=== PATIENT | female | born 1990 | race Caucasian/White ===

== ENCOUNTER 2020-05-01 15:18 | Day surgery (SDC) | payer SELFPAY ==
[2020-05-01] MEDS ORDERED: Sodium Chloride 0.9% 2.5 ML Syringe FLUSH PRN (16:16)
[2020-05-01] MEDS ORDERED: Sodium Chloride 0.9% 10 ML Syringe FLUSH PRN (16:16)
[2020-05-01] MEDS ORDERED: Ondansetron 4 MG/2 ML SDV IVPUSH ONE (16:38)
[2020-05-01] MEDS ORDERED: Sodium Chloride 0.9% 1,000 ML IV ONE (16:38)
[2020-05-01] MEDS ORDERED: Morphine 2 MG/ML SYRINGE IVPUSH ONE (16:38)
[2020-05-01 17:04] LABS: BLOOD UREA NITROGEN,BUN 7 mg/dL (7.0-18.0); CARBON DIOXIDE,CO2 26.2 mmol/L (21.0-32.0); CHLORIDE,CL 105 mmol/L (98-107); GLUCOSE RANDOM 88 mg/dL (74-106); LIPASE 177 U/L (73-393); POTASSIUM,K 3.5 mmol/L (3.5-5.1); SODIUM,NA 140 mmol/L (136-145)
[2020-05-01] MEDS ORDERED: Iopamidol 755 MG/ML 500 ML Multipack Bottle IVPUSH ONE (17:39)
--- NOTE | 2020-05-01 18:01 | EDM.PDOC ---
ED HPI GENERAL MEDICAL PROBLEM - General Chief Complaint: Abdominal Pain Stated Complaint: APENDIX PAIN Time Seen by Provider: 05/01/20 15:24 Source of Information: Reports: Patient History Limitations: Reports: No Limitations - History of Present Illness INITIAL COMMENTS - FREE TEXT/NARRATIVE: HISTORY AND PHYSICAL: History of present illness: Patient is a 29-year-old female who presents to the ED today with concern of right lower abdominal pain that has been ongoing for the past 2 days and worsening this morning. Patient states she had a vague right lower abdominal pain over the course of the past 2 days has increased. Patient states that today she has had more nausea and has had one episode of vomiting before coming to the emergency room and states that she does feel like she could vomit again. Patient states that she last ate lunch at about 1130 but vomited shortly after this and has not been able to eat or drink since. Patient denies any health history or any abdominal surgeries. Patient denies fever, chills, chest pain, shortness of breath, or cough. Denies headache, neck stiff ness, change in vision, syncope, or near syncope. Denies diarrhea, constipation, or dysuria. Has not noted any blood in urine or stool. Review of systems: As per history of present illness and below otherwise all systems reviewed and negative. Past medical history: As per history of present illness and as reviewed below otherwise noncontributory. Surgical history: As per history of present illness and as reviewed below otherwise noncontributory. Social history: See social history for further information Family history: As per history of present illness and as reviewed below otherwise noncontributory. Physical exam: General: Patient is alert, oriented, and in no acute distress. Patient sitting comfortably on exam table. HEENT: Atraumatic, normocephalic, pupils equal and reactive bilaterally, negative for conjunctival pallor or scleral icterus, mucous membranes moist, TMs normal bilaterally, throat clear, neck supple, nontender, trachea midline. No drooling or trismus noted. No meningeal signs. No hot potato voice noted. Lungs: Clear to auscultation, breath sounds equal bilaterally, chest nontender. Heart: S1S2, regular rate and rhythm without overt murmur Abdomen: Soft, nondistended, moderate RLQ tenderness. Negative rebound. Negative for masses or hepatosplenomegaly. Negative for costovertebral tenderness. Pelvis: Stable nontender. Genitourinary: Deferred. Rectal: Deferred. Skin: Intact, warm, dry. No lesions or rashes noted. Extremities: Atraumatic, negative for cords or calf pain. Neurovascular unremarkable. Neuro: Awake, alert, oriented. Cranial nerves II through XII unremarkable. Cerebellum unremarkable. Motor and sensory unremarkable throughout. Exam nonfocal. Notes: Dr. Benedict, general surgery, consulted on patient and has come in to personally see and evaluate the patient. Will transfer to the OR to Dr. Benedict Voices understanding and is agreeable to plan of care. Denies any further questions or concerns at this time. Diagnostics: CBC, CMP, Serum hcg, Lipase, Abd/pelvic CT w cont, lactate Therapeutics: NS, Zofran, Morphine, Unasyn Impression: Acute appendicitis Plan: Transfer to the OR to Dr. Benedict, general surgery Definitive disposition and diagnosis as appropriate pending reevaluation and review of above. Right Lower Abdomen Pain Score (Numeric/FACES): 8 - Related Data Allergies Allergy/AdvReac Type Severity Reaction Status Date / Time No Known Allergies Allergy Verified 05/01/20 16:08 Home Meds: Home Meds . [No Known Home Meds] 05/01/20 [History] Past Medical History - Infectious Disease History Infectious Disease History: Reports: Chicken Pox Other Infectious Disease History: Chicken pox as a child Social & Family History - Tobacco Use Tobacco Use Status *Q: Current Every Day Tobacco User Years of Tobacco use: 10 Packs/Tins Daily: 1 - Caffeine Use Caffeine Use: Reports: Coffee, Energy Drinks, Soda - Recreational Drug Use Recreational Drug Use: No ED ROS GENERAL - Review of Systems Review Of Systems: Comprehensive ROS is negative, except as noted in HPI. ED EXAM, GENERAL - Physical Exam Exam: See Below (see dictation) Course - Vital Signs Last Recorded V/S: Last Vital Signs Temp 97.8 F 05/01/20 20:00 Pulse 80 05/01/20 20:00 Resp 16 05/01/20 20:00 BP 129/78 05/01/20 20:00 Pulse Ox 96 05/01/20 20:00 - Orders/Labs/Meds Orders: Active Orders 24 hr Category Date Time Status Antiembolic Devices [RC] PER UNIT ROUTINE Care 05/01/20 19:42 Active Insert Urinary Catheter [OM.PC] Timed Care 05/01/20 19:42 Ordered Notify Provider Consults [RC] ASDIRECTED Care 05/01/20 18:19 Active Oxygen Therapy [RC] ASDIRECTED Care 05/01/20 19:42 Active RT Incentive Spirometry [RC] Q1HWA Care 05/01/20 19:42 Active Skin Preparation [RC] .PREOP Care 05/01/20 19:42 Active Urinary Catheter Assessment [RC] ASDIRECTED Care 05/01/20 19:42 Active Urinary Catheter Assessment [RC] ASDIRECTED Care 05/01/20 19:42 Active Urinary Catheter Assessment [RC] ASDIRECTED Care 05/01/20 19:42 Active Vital Signs [RC] PER UNIT ROUTINE Care 05/01/20 19:42 Active Consult to Physician [CONS] Stat Cons 05/01/20 18:19 Active Nothing Per Oral Diet [DIET] Diet 05/01/20 Dinner Active CULTURE BLOOD [BC] Stat Lab 05/01/20 16:40 Received CULTURE BLOOD [BC] Stat Lab 05/01/20 16:44 Received CULTURE URINE [RM] Stat Lab 05/01/20 19:47 Received Lactated Ringers [Ringers, Lactated] 1,000 ml Med 05/01/20 19:45 Active IV ASDIRECTED Sodium Chloride 0.9% [Saline Flush] Med 05/01/20 16:16 Active 10 ml FLUSH ASDIRECTED PRN Sodium Chloride 0.9% [Saline Flush] Med 05/01/20 16:16 Active 2.5 ml FLUSH ASDIRECTED PRN Antiembolic Hose [OM.PC] Routine Oth 05/01/20 19:42 Ordered Blood Culture x2 Reflex Set [OM.PC] Stat Oth 05/01/20 16:38 Ordered Saline Lock Insert [OM.PC] Stat Oth 05/01/20 16:16 Ordered Resuscitation Status Routine Resus Stat 05/01/20 19:42 Ordered Medication Orders Lactated Ringer's (Ringers, Lactated) 1,000 mls @ 125 mls/hr IV ASDIRECTED TIMOTHY Sodium Chloride (Saline Flush) 10 ml FLUSH ASDIRECTED PRN PRN Reason: Keep Vein Open Last Admin: 05/01/20 16:49 Dose: 10 ml Documented by: MURDNIC Sodium Chloride (Saline Flush) 2.5 ml FLUSH ASDIRECTED PRN PRN Reason: Keep Vein Open Last Admin: 05/01/20 16:49 Dose: 2.5 ml Documented by: BELL Labs: Laboratory Tests 05/01/20 05/01/20 05/01/20 Range/Units 16:25 16:25 16:25 WBC 22.32 H (4.0-11.0) K/uL RBC 4.63 (4.30-5.90) M/uL Hgb 14.4 (12.0-16.0) g/dL Hct 42.8 (36.0-46.0) % MCV 92.4 (80.0-98.0) fL MCH 31.1 (27.0-32.0) pg MCHC 33.6 (31.0-37.0) g/dL RDW Std Deviation 41.9 (28.0-62.0) fl RDW Coeff of Shelia 12 (11.0-15.0) % Plt Count 255 (150-400) K/uL MPV 10.60 (7.40-12.00) fL Neut % (Auto) 84.6 H (48.0-80.0) % Lymph % (Auto) 8.4 L (16.0-40.0) % Crawford % (Auto) 6.4 (0.0-15.0) % Eos % (Auto) 0.5 (0.0-7.0) % Baso % (Auto) 0.1 (0.0-1.5) % Neut # (Auto) 18.9 H (1.4-5.7) K/uL Lymph # (Auto) 1.9 (0.6-2.4) K/uL Crawford # (Auto) 1.4 H (0.0-0.8) K/uL Eos # (Auto) 0.1 (0.0-0.7) K/uL Baso # (Auto) 0.0 (0.0-0.1) K/uL Nucleated RBC % 0.0 /100WBC Nucleated RBCs # 0 K/uL Lactate (0.20-2.00) mmol/L Sodium 140 (136-145) mmol/L Potassium 3.5 (3.5-5.1) mmol/L Chloride 105 (98-107) mmol/L Carbon Dioxide 26.2 (21.0-32.0) mmol/L BUN 7 (7.0-18.0) mg/dL Creatinine 0.8 (0.6-1.0) mg/dL Est Cr Clr Drug Dosing 98.88 mL/min Estimated GFR (MDRD) > 60.0 ml/min Glucose 88 (74-106) mg/dL Calcium 9.5 (8.5-10.1) mg/dL Total Bilirubin 0.2 (0.2-1.0) mg/dL AST 11 L (15-37) IU/L ALT 19 (14-63) IU/L Alkaline Phosphatase 90 (46-116) U/L Total Protein 7.3 (6.4-8.2) g/dL Albumin 3.9 (3.4-5.0) g/dL Globulin 3.4 (2.6-4.0) g/dL Albumin/Globulin Ratio 1.1 (0.9-1.6) Lipase 177 (73-393) U/L HCG, Qual NEGATIVE (NEG) Urine Color Urine Appearance Urine pH (5.0-8.0) Ur Specific [place] (1.001-1.035) Urine Protein (NEGATIVE) mg/dL Urine Glucose (UA) (NEGATIVE) mg/dL Urine Ketones (NEGATIVE) mg/dL Urine Occult Blood (NEGATIVE) Urine Nitrite (NEGATIVE) Urine Bilirubin (NEGATIVE) Urine Urobilinogen (<2.0) EU/dL Ur Leukocyte Esterase (NEGATIVE) Urine RBC (0-2/HPF) Urine WBC (0-5/HPF) Ur Epithelial Cells (NONE-FEW) Urine Bacteria (NEGATIVE) SARS-CoV-2 RNA (LAVON) (NEGATIVE) 05/01/20 05/01/20 05/01/20 Range/Units 16:25 18:00 19:47 WBC (4.0-11.0) K/uL RBC (4.30-5.90) M/uL Hgb (12.0-16.0) g/dL Hct (36.0-46.0) % MCV (80.0-98.0) fL MCH (27.0-32.0) pg MCHC (31.0-37.0) g/dL RDW Std Deviation (28.0-62.0) fl RDW Coeff of Shelia (11.0-15.0) % Plt Count (150-400) K/uL MPV (7.40-12.00) fL Neut % (Auto) (48.0-80.0) % Lymph % (Auto) (16.0-40.0) % Crawford % (Auto) (0.0-15.0) % Eos % (Auto) (0.0-7.0) % Baso % (Auto) (0.0-1.5) % Neut # (Auto) (1.4-5.7) K/uL Lymph # (Auto) (0.6-2.4) K/uL Crawford # (Auto) (0.0-0.8) K/uL Eos # (Auto) (0.0-0.7) K/uL Baso # (Auto) (0.0-0.1) K/uL Nucleated RBC % /100WBC Nucleated RBCs # K/uL Lactate 1.6 (0.20-2.00) mmol/L Sodium (136-145) mmol/L Potassium (3.5-5.1) mmol/L Chloride (98-107) mmol/L Carbon Dioxide (21.0-32.0) mmol/L BUN (7.0-18.0) mg/dL Creatinine (0.6-1.0) mg/dL Est Cr Clr Drug Dosing mL/min Estimated GFR (MDRD) ml/min Glucose (74-106) mg/dL Calcium (8.5-10.1) mg/dL Total Bilirubin (0.2-1.0) mg/dL AST (15-37) IU/L ALT (14-63) IU/L Alkaline Phosphatase (46-116) U/L Total Protein (6.4-8.2) g/dL Albumin (3.4-5.0) g/dL Globulin (2.6-4.0) g/dL Albumin/Globulin Ratio (0.9-1.6) Lipase (73-393) U/L HCG, Qual (NEG) Urine Color YELLOW Urine Appearance SLT CLOUDY Urine pH 7.5 (5.0-8.0) Ur Specific [place] 1.010 (1.001-1.035) Urine Protein NEGATIVE (NEGATIVE) mg/dL Urine Glucose (UA) NEGATIVE (NEGATIVE) mg/dL Urine Ketones NEGATIVE (NEGATIVE) mg/dL Urine Occult Blood LARGE H (NEGATIVE) Urine Nitrite NEGATIVE (NEGATIVE) Urine Bilirubin NEGATIVE (NEGATIVE) Urine Urobilinogen 0.2 (<2.0) EU/dL Ur Leukocyte Esterase TRACE H (NEGATIVE) Urine RBC 0-2 (0-2/HPF) Urine WBC 1-3 (0-5/HPF) Ur Epithelial Cells MODERATE (NONE-FEW) Urine Bacteria FEW (NEGATIVE) SARS-CoV-2 RNA (LAVON) NEGATIVE (NEGATIVE) Meds: Medications Generic Name Dose Route Start Last Admin Trade Name Freq PRN Reason Stop Dose Admin Lactated Ringer's 1,000 mls @ 125 mls/hr 05/01/20 19:45 Ringers, Lactated IV ASDIRECTED TIMOTHY Sodium Chloride 10 ml 05/01/20 16:16 05/01/20 16:49 Saline Flush FLUSH 10 ml ASDIRECTED PRN Administration Keep Vein Open Sodium Chloride 2.5 ml 05/01/20 16:16 05/01/20 16:49 Saline Flush FLUSH 2.5 ml ASDIRECTED PRN Administration Keep Vein Open Discontinued Medications Generic Name Dose Route Start Last Admin Trade Name Kameronq PRN Reason Stop Dose Admin Bupivacaine HCl Confirm 05/01/20 19:53 Marcaine 0.5% Administered 05/01/20 19:54 Dose 30 ml .ROUTE .STK-MED ONE Cefazolin Sodium Confirm 05/01/20 19:53 Ancef Administered 05/01/20 19:54 Dose 1 gm .ROUTE .STK-MED ONE Dexamethasone Confirm 05/01/20 19:49 Dexamethasone Administered 05/01/20 19:50 Dose 20 mg .ROUTE .STK-MED ONE Fentanyl Confirm 05/01/20 19:48 Sublimaze Administered 05/01/20 19:49 Dose 100 mcg .ROUTE .STK-MED ONE Glycopyrrolate Confirm 05/01/20 19:49 Robinul Administered 05/01/20 19:50 Dose 0.2 mg .ROUTE .STK-MED ONE Sodium Chloride 1,000 mls @ 999 mls/hr 05/01/20 16:38 05/01/20 16:48 Normal Saline IV 05/01/20 17:38 999 mls/hr STAT ONE Administration Ampicillin Sodium/Sulbactam 100 mls @ 200 mls/hr 05/01/20 18:20 05/01/20 19:57 Sodium 3 gm/ Sodium Chloride IV 05/01/20 18:49 200 mls/hr ONETIME ONE Administration Acetaminophen Confirm 05/01/20 19:57 Ofirmev Administered 05/01/20 19:58 Dose 100 mls @ as directed .ROUTE .STK-MED ONE Iopamidol 100 ml 05/01/20 17:39 05/01/20 17:40 Isovue Multipack-370 (76%) IVPUSH 05/01/20 17:40 100 ml ONETIME ONE Administration Ketorolac Tromethamine Confirm 05/01/20 19:49 Toradol Administered 05/01/20 19:50 Dose 30 mg .ROUTE .STK-MED ONE Midazolam HCl Confirm 05/01/20 19:49 Versed 1 Mg/Ml Administered 05/01/20 19:50 Dose 2 mg .ROUTE .STK-MED ONE Morphine Sulfate 2 mg 05/01/20 16:38 05/01/20 16:48 Morphine IVPUSH 05/01/20 16:39 2 mg ONETIME ONE Administration Morphine Sulfate Confirm 05/01/20 19:58 Morphine Administered 05/01/20 19:59 Dose 10 mg .ROUTE .STK-MED ONE Ondansetron HCl 4 mg 05/01/20 16:38 05/01/20 16:48 Zofran IVPUSH 05/01/20 16:39 4 mg ONETIME ONE Administration Propofol Confirm 05/01/20 19:48 Diprivan 20 Ml Administered 05/01/20 19:49 Dose 600 mg .ROUTE .STK-MED ONE Rocuronium [place] Confirm 05/01/20 19:49 Rocuronium [place] Administered 05/01/20 19:50 Dose 50 mg .ROUTE .STK-MED ONE Departure - Departure Time of Disposition: 18:25 Disposition: Still A Patient 30 Clinical Impression: Acute appendicitis Qualifiers: Acute appendicitis type: unspecified acute appendicitis type Qualified Code(s): K35.80 - Unspecified acute appendicitis - Discharge Information Sepsis Event Note (ED) - Evaluation Sepsis Screening Result: Possible Sepsis Risk - Focused Exam Vital Signs: Vital Signs Temp Pulse Resp BP Pulse Ox 05/01/20 20:00 97.8 F 80 16 129/78 96 05/01/20 18:47 88 119/74 100 05/01/20 18:17 89 123/75 99 05/01/20 17:47 85 120/65 97 05/01/20 16:59 84 16 107/64 98 05/01/20 16:09 96.5 F L 96 18 117/63 95 - My Orders Last 24 Hours: My Active Orders 05/01/20 16:16 Sodium Chloride 0.9% [Saline Flush] 10 ml FLUSH ASDIRECTED PRN Sodium Chloride 0.9% [Saline Flush] 2.5 ml FLUSH ASDIRECTED PRN Saline Lock Insert [OM.PC] Stat 05/01/20 16:38 Blood Culture x2 Reflex Set [OM.PC] Stat 05/01/20 16:40 CULTURE BLOOD [BC] Stat 05/01/20 16:44 CULTURE BLOOD [BC] Stat 05/01/20 18:19 Notify Provider Consults [RC] ASDIRECTED Consult to Physician [CONS] Stat 05/01/20 19:47 CULTURE URINE [RM] Stat - Assessment/Plan Last 24 Hours: My Active Orders 05/01/20 16:16 Sodium Chloride 0.9% [Saline Flush] 10 ml FLUSH ASDIRECTED PRN Sodium Chloride 0.9% [Saline Flush] 2.5 ml FLUSH ASDIRECTED PRN Saline Lock Insert [OM.PC] Stat 05/01/20 16:38 Blood Culture x2 Reflex Set [OM.PC] Stat 05/01/20 16:40 CULTURE BLOOD [BC] Stat 05/01/20 16:44 CULTURE BLOOD [BC] Stat 05/01/20 18:19 Notify Provider Consults [RC] ASDIRECTED Consult to Physician [CONS] Stat 05/01/20 19:47 CULTURE URINE [RM] Stat
--- NOTE | 2020-05-01 18:15 | CT ---
INDICATION: RLQ abdominal pain. CT ABDOMEN AND PELVIS WITH CONTRAST TECHNIQUE: Multidetector CT imaging was performed through the abdomen and pelvis following intravenous contrast administration using 100 mL Isovue 370. Coronal and sagittal reconstructions were generated. COMPARISON: None. FINDINGS: Lower chest: Lung bases are clear. Liver: Unremarkable aside from a small hypodensity in the right hepatic lobe on image 37 which is not well characterized but likely benign. Gallbladder and bile ducts: No gallbladder wall thickening or calcified gallstones. No biliary dilation identified. Pancreas: Unremarkable. Spleen: Normal. Adrenals: No nodules or masses. Kidneys, ureters, and urinary bladder: No renal masses or hydronephrosis. No bladder mass or definite wall thickening. Gastrointestinal tract: Normal caliber bowel without wall thickening or obstruction. The appendix is retrocecal in position and is enlarged, measuring up to 12 millimeters in diameter, with periappendiceal fat stranding, consistent with appendicitis. Vascular structures: Normal for age. Peritoneum: No free air, abscess, or significant free fluid. Lymph nodes: No pathologically enlarged nodes identified. Reproductive organs: No pelvic masses. Bones: Normal for age. IMPRESSION: Acute appendicitis. No evidence of perforation or abscess. JIMMIE VALDEZ MD [facility] Dictated by Juan Carlos Valdez MD @ 05/01/2020 6:10:42 PM Dictated by: Juan Carlos Valdez MD @ 05/01/2020 18:13:19 (Electronically Signed)
[2020-05-01] MEDS ORDERED: Ampicillin/Sulbactam Na 3 GM in Sodium Chloride 0.9% 100 ML IV ONE (18:20)
[2020-05-01] MEDS ORDERED: Lactated Ringers 1,000 ML IV SCH ×2 (19:45→21:45)
[2020-05-01] MEDS ORDERED: fentaNYL 100 MCG/2 ML SDV ONE (19:48)
[2020-05-01] MEDS ORDERED: Propofol 200 MG/20 ML SDV ONE (19:48)
--- NOTE | 2020-05-01 19:48 | PCM.CONS ---
H&P History of Present Illness - General Date of Service: 05/01/20 Admit Problem/Dx: Right lower quadrant pain with nausea, vomiting and anorexia. Source of Information: Patient History Limitations: Reports: No Limitations - History of Present Illness Initial Comments - Free Text/Narative: Patient is a 29-year-old female who developed abdominal pain last night. Initially she thought it was perhaps her menstrual.. Today the pain was worse and now migrated to the right lower quadrant. She has been nauseated and throwing up all day. She did try to eat about 11:30, but nothing stayed down. She denies any pain with ambulation. No diarrhea or constipation. Symptom Onset Date: 04/30/20 Duration of Symptoms: Reports: Hour(s):, Constant, Getting Worse Location: Reports: Abdomen Severity: Moderate Improves with: Reports: Rest Worsens with: Denies: Movement Context: Reports: Sick Contact Associated Symptoms: Reports: Loss of Appetite, Nausea/Vomiting Right Lower Abdomen Pain Score (Numeric/FACES): 8 - Related Data Allergies/Adverse Reactions: Allergies Allergy/AdvReac Type Severity Reaction Status Date / Time No Known Allergies Allergy Verified 05/01/20 16:08 Home Medications: Home Meds . [No Known Home Meds] 05/01/20 [History] Past Medical History - Infectious Disease History Infectious Disease History: Reports: Chicken Pox Other Infectious Disease History: Chicken pox as a child Social & Family History - Tobacco Use Tobacco Use Status *Q: Current Every Day Tobacco User Years of Tobacco use: 10 Packs/Tins Daily: 1 - Caffeine Use Caffeine Use: Reports: Coffee, Energy Drinks, Soda - Alcohol Use Alcohol Use History: Yes Days Per Week of Alcohol Use: 7 Number of Drinks Per Day Comment: States she drinks 1/5 per day. Alcohol Use in Last Twelve Months: Yes Alcohol Use Frequency: Daily - Recreational Drug Use Recreational Drug Use: No H&P Review of Systems - Review of Systems: Review Of Systems: See Below General: Reports: Decreased Appetite. Denies: Fever, Chills, Fatigue HEENT: Reports: No Symptoms Pulmonary: Denies: Shortness of Breath, Wheezing, Pleuritic Chest Pain Cardiovascular: Denies: Chest Pain Gastrointestinal: Reports: Abdominal Pain, Anorexia, Decreased Appetite, Nausea, Vomiting. Denies: Black Stool, Bloody Stool, Constipation, Diarrhea, Distension Genitourinary: Denies: Dysuria, Frequency, Burning, Pain, Urgency Musculoskeletal: Reports: No Symptoms Skin: Denies: Cyanosis, Jaundice, Mottled Psychiatric: Denies: Confusion, Depression, Mood Lability, Anxiety Neurological: Reports: No Symptoms Hematologic/Lymphatic: Reports: No Symptoms Immunologic: Reports: No Symptoms Exam - Exam Exam: See Below - Vital Signs Vital Signs: Last Vital Signs Temp 96.5 F L 05/01/20 16:09 Pulse 88 05/01/20 18:47 Resp 16 05/01/20 16:59 BP 119/74 05/01/20 18:47 Pulse Ox 100 05/01/20 18:47 Weight: 191 lb 12.835 oz - Exam Quality Assessment: DVT Prophylaxis. No: Urinary Catheter General: Alert, Oriented, Cooperative, Mild Distress HEENT: Conjunctiva Clear, EACs Clear, EOMI, Pupils Equal, Pupils Reactive. No: Scleral Icterus Neck: Supple, Trachea Midline Lungs: Clear to Auscultation, Normal Respiratory Effort Cardiovascular: Regular Rate, Regular Rhythm, Normal S1, Normal S2. No: Tachycardia GI/Abdominal Exam: Normal Bowel Sounds, Soft, No Distention, Rebound, Tender. No: Guarding, Rigid (Female) Exam: Deferred Rectal (Female) Exam: Deferred Back Exam: Normal Inspection Extremities: Normal Inspection, Normal Range of Motion Peripheral Pulses: 4+: Posterior Tibial (L), Posterior Tibial (R), Dorsalis Pedis (L), Dorsalis Pedis (R) Skin: Warm, Dry, Intact - Patient Data Lab Results Last 24 hrs: Laboratory Results - last 24 hr 05/01/20 05/01/20 05/01/20 Range/Units 16:25 16:25 16:25 WBC 22.32 H (4.0-11.0) K/uL RBC 4.63 (4.30-5.90) M/uL Hgb 14.4 (12.0-16.0) g/dL Hct 42.8 (36.0-46.0) % MCV 92.4 (80.0-98.0) fL MCH 31.1 (27.0-32.0) pg MCHC 33.6 (31.0-37.0) g/dL RDW Std Deviation 41.9 (28.0-62.0) fl RDW Coeff of Shelia 12 (11.0-15.0) % Plt Count 255 (150-400) K/uL MPV 10.60 (7.40-12.00) fL Neut % (Auto) 84.6 H (48.0-80.0) % Lymph % (Auto) 8.4 L (16.0-40.0) % [place] % (Auto) 6.4 (0.0-15.0) % Eos % (Auto) 0.5 (0.0-7.0) % Baso % (Auto) 0.1 (0.0-1.5) % Neut # (Auto) 18.9 H (1.4-5.7) K/uL Lymph # (Auto) 1.9 (0.6-2.4) K/uL [place] # (Auto) 1.4 H (0.0-0.8) K/uL Eos # (Auto) 0.1 (0.0-0.7) K/uL Baso # (Auto) 0.0 (0.0-0.1) K/uL Nucleated RBC % 0.0 /100WBC Nucleated RBCs # 0 K/uL Lactate (0.20-2.00) mmol/L Sodium 140 (136-145) mmol/L Potassium 3.5 (3.5-5.1) mmol/L Chloride 105 (98-107) mmol/L Carbon Dioxide 26.2 (21.0-32.0) mmol/L BUN 7 (7.0-18.0) mg/dL Creatinine 0.8 (0.6-1.0) mg/dL Est Cr Clr Drug Dosing 98.88 mL/min Estimated GFR (MDRD) > 60.0 ml/min Glucose 88 (74-106) mg/dL Calcium 9.5 (8.5-10.1) mg/dL Total Bilirubin 0.2 (0.2-1.0) mg/dL AST 11 L (15-37) IU/L ALT 19 (14-63) IU/L Alkaline Phosphatase 90 (46-116) U/L Total Protein 7.3 (6.4-8.2) g/dL Albumin 3.9 (3.4-5.0) g/dL Globulin 3.4 (2.6-4.0) g/dL Albumin/Globulin Ratio 1.1 (0.9-1.6) Lipase 177 (73-393) U/L HCG, Qual NEGATIVE (NEG) SARS-CoV-2 RNA (LAVON) (NEGATIVE) 05/01/20 05/01/20 Range/Units 16:25 18:00 WBC (4.0-11.0) K/uL RBC (4.30-5.90) M/uL Hgb (12.0-16.0) g/dL Hct (36.0-46.0) % MCV (80.0-98.0) fL MCH (27.0-32.0) pg MCHC (31.0-37.0) g/dL RDW Std Deviation (28.0-62.0) fl RDW Coeff of Shelia (11.0-15.0) % Plt Count (150-400) K/uL MPV (7.40-12.00) fL Neut % (Auto) (48.0-80.0) % Lymph % (Auto) (16.0-40.0) % [place] % (Auto) (0.0-15.0) % Eos % (Auto) (0.0-7.0) % Baso % (Auto) (0.0-1.5) % Neut # (Auto) (1.4-5.7) K/uL Lymph # (Auto) (0.6-2.4) K/uL [place] # (Auto) (0.0-0.8) K/uL Eos # (Auto) (0.0-0.7) K/uL Baso # (Auto) (0.0-0.1) K/uL Nucleated RBC % /100WBC Nucleated RBCs # K/uL Lactate 1.6 (0.20-2.00) mmol/L Sodium (136-145) mmol/L Potassium (3.5-5.1) mmol/L Chloride (98-107) mmol/L Carbon Dioxide (21.0-32.0) mmol/L BUN (7.0-18.0) mg/dL Creatinine (0.6-1.0) mg/dL Est Cr Clr Drug Dosing mL/min Estimated GFR (MDRD) ml/min Glucose (74-106) mg/dL Calcium (8.5-10.1) mg/dL Total Bilirubin (0.2-1.0) mg/dL AST (15-37) IU/L ALT (14-63) IU/L Alkaline Phosphatase (46-116) U/L Total Protein (6.4-8.2) g/dL Albumin (3.4-5.0) g/dL Globulin (2.6-4.0) g/dL Albumin/Globulin Ratio (0.9-1.6) Lipase (73-393) U/L HCG, Qual (NEG) SARS-CoV-2 RNA (LAVON) NEGATIVE (NEGATIVE) Result Diagrams: 05/01/20 16:25 05/01/20 16:25 Sepsis Event Note - Evaluation Sepsis Screening Result: Possible Sepsis Risk - Focused Exam Vital Signs: Vital Signs Temp Pulse Resp BP Pulse Ox 05/01/20 18:47 88 119/74 100 05/01/20 18:17 89 123/75 99 05/01/20 17:47 85 120/65 97 05/01/20 16:59 84 16 107/64 98 05/01/20 16:09 96.5 F L 96 18 117/63 95 Consult PN Assessment/Plan (1) Right lower quadrant pain SNOMED Code(s): 967373299 Code(s): R10.31 - RIGHT LOWER QUADRANT PAIN Priority: High Current Visit: Yes (2) Nausea and vomiting SNOMED Code(s): 93265034 Code(s): R11.2 - NAUSEA WITH VOMITING, UNSPECIFIED Priority: Medium Current Visit: Yes Qualifiers: Vomiting Intractability: non-intractable (3) Acute appendicitis SNOMED Code(s): 83573632 Code(s): K35.80 - UNSPECIFIED ACUTE APPENDICITIS Priority: High Current Visit: Yes Qualifiers: Acute appendicitis type: unspecified acute appendicitis type Qualified Code(s): K35.80 - Unspecified acute appendicitis Problem List Initiated/Reviewed/Updated: Yes My Orders Last 24 Hours: My Active Orders 05/01/20 Dinner Nothing Per Oral Diet [DIET] 05/01/20 19:42 Antiembolic Devices [RC] PER UNIT ROUTINE Insert Urinary Catheter [OM.PC] Timed Oxygen Therapy [RC] ASDIRECTED RT Incentive Spirometry [RC] Q1HWA Skin Preparation [RC] .PREOP Urinary Catheter Assessment [RC] ASDIRECTED Urinary Catheter Assessment [RC] ASDIRECTED Urinary Catheter Assessment [RC] ASDIRECTED Vital Signs [RC] PER UNIT ROUTINE Antiembolic Hose [OM.PC] Routine Resuscitation Status Routine 05/01/20 19:45 Lactated Ringers @ 125 MLS/HR(1000ml) Lactated Ringers [Ringers, Lactated] 1,000 ml IV ASDIRECTED Plan: Laparoscopic appendectomy, possible open appendectomy. Both operative procedures, along with the risks, including, but not limited to, bleeding, infection, pneumonia, deep venous thrombosis, pulmonary emboli, myocardial infarction, and adjacent organ injury have been reviewed with the patient who voices understanding, offers no questions and agrees to proceed.
[2020-05-01] MEDS ORDERED: Succinylcholine/Sod PF 100 MG/5 ML SYRINGE IV ONE (19:49)
[2020-05-01] MEDS ORDERED: Midazolam 1 MG/ML 2 ML SDV ONE (19:49)
[2020-05-01] MEDS ORDERED: Rocuronium Bromide 50 MG/5 ML Syringe ONE (19:49)
[2020-05-01] MEDS ORDERED: Ketorolac 30 MG/ML SDV ONE (19:49)
[2020-05-01] MEDS ORDERED: Glycopyrrolate 0.2 MG/ML SDV ONE (19:49)
[2020-05-01] MEDS ORDERED: Dexamethasone 4 MG/ML 5 ML MDV ONE (19:49)
[2020-05-01] MEDS ORDERED: Bupivacaine 0.5% 30 ML SDV ONE (19:53)
[2020-05-01] MEDS ORDERED: ceFAZolin 1 GM Vial ONE (19:53)
[2020-05-01] MEDS ORDERED: Morphine 10 MG/ML Syringe ONE (19:58)
--- NOTE | 2020-05-01 20:49 | PCM.PREANE ---
Preanesthetic Assessment - Procedure Proposed Procedure: Lap Appy - Anesthesia/Transfusion/Family Hx Anesthesia History: Prior Anesthesia Without Reaction Family History of Anesthesia Reaction: No Transfusion History: No Prior Transfusion(s) Intubation History: Unknown - Review of Systems General: No Symptoms Pulmonary: Other (+ Smoker) Cardiovascular: No Symptoms Gastrointestinal: Nausea Neurological: No Symptoms Other: Reports: None - Physical Assessment NPO Status Date: 05/01/20 NPO Status Time: 11:00 Vital Signs: Last Vital Signs Temp 36.6 C 05/01/20 20:00 Pulse 80 05/01/20 20:00 Resp 16 05/01/20 20:00 BP 129/78 05/01/20 20:00 Pulse Ox 96 05/01/20 20:00 Height: 1.68 m Weight: 87 kg ASA Class: 2E Mental Status: Alert & Oriented x3 Airway Class: Mallampati = 2 Dentition: Reports: Normal Dentition Thyro-Mental Finger Breadths: 3 Mouth Opening Finger Breadths: 3 ROM/Head Extension: Full Lungs: Clear to Auscultation Cardiovascular: Regular Rate (Discussed. ? Answered. Permit signed.) - Lab Values: Laboratory Last Values WBC 22.32 K/uL (4.0-11.0) H 05/01/20 16:25 RBC 4.63 M/uL (4.30-5.90) 05/01/20 16:25 Hgb 14.4 g/dL (12.0-16.0) 05/01/20 16:25 Hct 42.8 % (36.0-46.0) 05/01/20 16:25 MCV 92.4 fL (80.0-98.0) 05/01/20 16:25 MCH 31.1 pg (27.0-32.0) 05/01/20 16:25 MCHC 33.6 g/dL (31.0-37.0) 05/01/20 16:25 RDW Std Deviation 41.9 fl (28.0-62.0) 05/01/20 16:25 RDW Coeff of Shelia 12 % (11.0-15.0) 05/01/20 16:25 Plt Count 255 K/uL (150-400) 05/01/20 16:25 MPV 10.60 fL (7.40-12.00) 05/01/20 16:25 Neut % (Auto) 84.6 % (48.0-80.0) H 05/01/20 16:25 Lymph % (Auto) 8.4 % (16.0-40.0) L 05/01/20 16:25 [place] % (Auto) 6.4 % (0.0-15.0) 05/01/20 16:25 Eos % (Auto) 0.5 % (0.0-7.0) 05/01/20 16:25 Baso % (Auto) 0.1 % (0.0-1.5) 05/01/20 16:25 Neut # (Auto) 18.9 K/uL (1.4-5.7) H 05/01/20 16:25 Lymph # (Auto) 1.9 K/uL (0.6-2.4) 05/01/20 16:25 [place] # (Auto) 1.4 K/uL (0.0-0.8) H 05/01/20 16:25 Eos # (Auto) 0.1 K/uL (0.0-0.7) 05/01/20 16:25 Baso # (Auto) 0.0 K/uL (0.0-0.1) 05/01/20 16:25 Nucleated RBC % 0.0 /100WBC 05/01/20 16:25 Nucleated RBCs # 0 K/uL 05/01/20 16:25 Lactate 1.6 mmol/L (0.20-2.00) 05/01/20 16:25 Sodium 140 mmol/L (136-145) 05/01/20 16:25 Potassium 3.5 mmol/L (3.5-5.1) 05/01/20 16:25 Chloride 105 mmol/L (98-107) 05/01/20 16:25 Carbon Dioxide 26.2 mmol/L (21.0-32.0) 05/01/20 16:25 BUN 7 mg/dL (7.0-18.0) 05/01/20 16:25 Creatinine 0.8 mg/dL (0.6-1.0) 05/01/20 16:25 Est Cr Clr Drug Dosing 98.88 mL/min 05/01/20 16:25 Estimated GFR (MDRD) > 60.0 ml/min 05/01/20 16:25 Glucose 88 mg/dL (74-106) 05/01/20 16:25 Calcium 9.5 mg/dL (8.5-10.1) 05/01/20 16:25 Total Bilirubin 0.2 mg/dL (0.2-1.0) 05/01/20 16:25 AST 11 IU/L (15-37) L 05/01/20 16:25 ALT 19 IU/L (14-63) 05/01/20 16:25 Alkaline Phosphatase 90 U/L (46-116) 05/01/20 16:25 Total Protein 7.3 g/dL (6.4-8.2) 05/01/20 16:25 Albumin 3.9 g/dL (3.4-5.0) 05/01/20 16:25 Globulin 3.4 g/dL (2.6-4.0) 05/01/20 16:25 Albumin/Globulin Ratio 1.1 (0.9-1.6) 05/01/20 16:25 Lipase 177 U/L (73-393) 05/01/20 16:25 HCG, Qual NEGATIVE (NEG) 05/01/20 16:25 Urine Color YELLOW 05/01/20 19:47 Urine Appearance SLT CLOUDY 05/01/20 19:47 Urine pH 7.5 (5.0-8.0) 05/01/20 19:47 Ur Specific [place] 1.010 (1.001-1.035) 05/01/20 19:47 Urine Protein NEGATIVE mg/dL (NEGATIVE) 05/01/20 19:47 Urine Glucose (UA) NEGATIVE mg/dL (NEGATIVE) 05/01/20 19:47 Urine Ketones NEGATIVE mg/dL (NEGATIVE) 05/01/20 19:47 Urine Occult Blood LARGE (NEGATIVE) H 05/01/20 19:47 Urine Nitrite NEGATIVE (NEGATIVE) 05/01/20 19:47 Urine Bilirubin NEGATIVE (NEGATIVE) 05/01/20 19:47 Urine Urobilinogen 0.2 EU/dL (<2.0) 05/01/20 19:47 Ur Leukocyte Esterase TRACE (NEGATIVE) H 05/01/20 19:47 Urine RBC 0-2 (0-2/HPF) 05/01/20 19:47 Urine WBC 1-3 (0-5/HPF) 05/01/20 19:47 Ur Epithelial Cells MODERATE (NONE-FEW) 05/01/20 19:47 Urine Bacteria FEW (NEGATIVE) 05/01/20 19:47 SARS-CoV-2 RNA (LAVON) NEGATIVE (NEGATIVE) 05/01/20 18:00 - Allergies Allergies/Adverse Reactions: Allergies Allergy/AdvReac Type Severity Reaction Status Date / Time No Known Allergies Allergy Verified 05/01/20 16:08 PreAnesthesia Questionnaire - Infectious Disease History Infectious Disease History: Reports: Chicken Pox Other Infectious Disease History: Chicken pox as a child - SUBSTANCE USE Tobacco Use Status *Q: Current Every Day Tobacco User Days Per Week of Alcohol Use: 7 Recreational Drug Use History: No - HOME MEDS Home Medications: Home Meds . [No Known Home Meds] 05/01/20 [History] - CURRENT (IN HOUSE) MEDS Current Meds: Current Medications Lactated Ringer's (Ringers, Lactated) 1,000 mls @ 125 mls/hr IV ASDIRECTED TIMOTHY Sodium Chloride (Saline Flush) 10 ml FLUSH ASDIRECTED PRN PRN Reason: Keep Vein Open Last Admin: 05/01/20 16:49 Dose: 10 ml Documented by: Sodium Chloride (Saline Flush) 2.5 ml FLUSH ASDIRECTED PRN PRN Reason: Keep Vein Open Last Admin: 05/01/20 16:49 Dose: 2.5 ml Documented by: Discontinued Medications Bupivacaine HCl (Marcaine 0.5%) Confirm Administered Dose 30 ml .ROUTE .STK-MED ONE Stop: 05/01/20 19:54 Cefazolin Sodium (Ancef) Confirm Administered Dose 1 gm .ROUTE .STK-MED ONE Stop: 05/01/20 19:54 Dexamethasone (Dexamethasone) Confirm Administered Dose 20 mg .ROUTE .STK-MED ONE Stop: 05/01/20 19:50 Fentanyl (Sublimaze) Confirm Administered Dose 100 mcg .ROUTE .STK-MED ONE Stop: 05/01/20 19:49 Glycopyrrolate (Robinul) Confirm Administered Dose 0.2 mg .ROUTE .STK-MED ONE Stop: 05/01/20 19:50 Sodium Chloride (Normal Saline) 1,000 mls @ 999 mls/hr IV STAT ONE Stop: 05/01/20 17:38 Last Admin: 05/01/20 16:48 Dose: 999 mls/hr Documented by: Ampicillin Sodium/Sulbactam (Sodium 3 gm/ Sodium Chloride) 100 mls @ 200 mls/hr IV ONETIME ONE Stop: 05/01/20 18:49 Last Admin: 05/01/20 19:57 Dose: 200 mls/hr Documented by: Acetaminophen (Ofirmev) Confirm Administered Dose 100 mls @ as directed .ROUTE .STK-MED ONE Stop: 05/01/20 19:58 Iopamidol (Isovue Multipack-370 (76%)) 100 ml IVPUSH ONETIME ONE Stop: 05/01/20 17:40 Last Admin: 05/01/20 17:40 Dose: 100 ml Documented by: Ketorolac Tromethamine (Toradol) Confirm Administered Dose 30 mg .ROUTE .STK-MED ONE Stop: 05/01/20 19:50 Midazolam HCl (Versed 1 Mg/Ml) Confirm Administered Dose 2 mg .ROUTE .STK-MED ONE Stop: 05/01/20 19:50 Morphine Sulfate (Morphine) 2 mg IVPUSH ONETIME ONE Stop: 05/01/20 16:39 Last Admin: 05/01/20 16:48 Dose: 2 mg Documented by: Morphine Sulfate (Morphine) Confirm Administered Dose 10 mg .ROUTE .STK-MED ONE Stop: 05/01/20 19:59 Ondansetron HCl (Zofran) 4 mg IVPUSH ONETIME ONE Stop: 05/01/20 16:39 Last Admin: 05/01/20 16:48 Dose: 4 mg Documented by: Propofol (Diprivan 20 Ml) Confirm Administered Dose 600 mg .ROUTE .STK-MED ONE Stop: 05/01/20 19:49 Rocuronium [place] (Rocuronium [place]) Confirm Administered Dose 50 mg .ROUTE .STK-MED ONE Stop: 05/01/20 19:50
[2020-05-01] MEDS ORDERED: Morphine 4 MG/ML Syringe IVPUSH ONE (20:51)
[2020-05-01] MEDS ORDERED: Acetaminophen/HYDROcodone 325-5 MG Tab PO PRN (21:36)
[2020-05-01] MEDS ORDERED: Morphine 10 MG/ML Syringe IVPUSH PRN (21:36)
--- NOTE | 2020-05-01 21:39 | PCM.OPNOTE ---
- General Post-Op/Procedure Note Date of Surgery/Procedure: 05/01/20 Operative Procedure(s): Laparoscopic appendectomy Pre Op Diagnosis: Acute abdomen Post-Op Diagnosis: Acute nonruptured appendicitis with localized peritonitis Anesthesia Technique: General ET Tube (ASA IIE) Primary Surgeon: Rafael Benedict Fluid Replacement, Intraop: 1,200 Output, Urine Amount: 125 EBL in mLs: 10 Condition: Stable Free Text/Narrative:: Intake & Output 05/01/20 05/01/20 05/02/20 11:59 19:59 03:59 Output Total 125 Balance -125 DICTATION [id number] CPT CODE 46824
--- NOTE | 2020-05-01 22:01 | PCM.POSTAN ---
POST ANESTHESIA ASSESSMENT - MENTAL STATUS Mental Status: Alert - VITAL SIGNS Vital Signs: Last Vital Signs Temp 37.1 C 05/01/20 21:31 Pulse 85 05/01/20 21:56 Resp 18 05/01/20 21:56 BP 118/74 05/01/20 21:56 Pulse Ox 97 05/01/20 21:56 - RESPIRATORY Respiratory Status: Respiratory Rate WNL - CARDIOVASCULAR CV Status: Pulse Rate WNL - GASTROINTESTINAL GI Status: No Symptoms - PAIN Pain Score: 3 (Soreness) - POST OP HYDRATION Hydration Status: Adequate & Stable (Doing well. Ready for transfer to floor)
[2020-05-01] MEDS: cefOXitin 1 GM in Premix Bag 1 BAG IV SCH (23:35)
--- NOTE | 2020-05-02 04:23 | OR ---
SURGEON: Rafael Benedict M.D. DATE OF PROCEDURE: 05/01/2020 OPERATION PERFORMED: Laparoscopic appendectomy. PRIMARY SURGEON: Rafael Benedict MD. ANESTHESIA: General endotracheal. ASA CLASSIFICATION: IIE. PREOPERATIVE DIAGNOSIS: Acute abdomen with right lower quadrant pain. CT diagnosis of appendicitis. POSTOPERATIVE DIAGNOSIS: Acute appendicitis without rupture with localized peritonitis. ESTIMATED BLOOD LOSS: 10 mL. Intraoperative fluid replacement 1200 mL of crystalloid. Intraoperative urinary output 125 mL. DESCRIPTION OF PROCEDURE: The patient was taken to the operating room and placed on the operating table in the supine position. Time-out was called for appropriate identification of the patient and procedure. Thigh-high TEDs and sequential compression boots were placed. Following satisfactory attainment of general endotracheal anesthesia, a Lopez catheter was placed in the patient's urinary bladder. The abdomen was prepped with DuraPrep solution. Sterile drapes were applied. Skin just above the umbilicus was infiltrated with 0.5% Marcaine solution. Skin incision was made and deepened through the subcutaneous tissue obtaining hemostasis with the use of electrocautery. The Veress needle was introduced into the peritoneal cavity. Saline drop test was positive. Carbon dioxide pneumoperitoneum was established with the release set at 13 cm of water. Once a satisfactory pneumoperitoneum was established, 5 mm camera and port were placed through the supraumbilical incision. Peritoneal cavity was inspected and there was no gross purulence noted. The appendix was not yet visualized. Under camera vision, 12 mm suprapubic and 5 mm left lower quadrant ports were placed. Each incision was preemptively infiltrated with 0.5% Marcaine solution. After each incision, hemostasis was obtained with the use of electrocautery. 12 mm port was placed in the suprapubic position and 5 mm port in the left lower quadrant. The appendix was now grasped and was in a lateral position. This was rather easily delivered into the wound and adhesions were taken down. The mesoappendix was divided with the use of the Harmonic scalpel. No bleeding was noted. There was no evidence of gangrenous change nor was there any evidence of cloudy fluid. Once the mesoappendix was divided, the appendix was divided using an Endo-CLEM with a blue load. The appendix was promptly placed in an EndoCatch and the right lower quadrant inspected. No bleeding was noted and the staple line was intact. The right lower quadrant was then irrigated with 1% Ancef solution using approximately 500 to 600 mL. All fluid was aspirated. The 12 mm port and Endo Catch containing appendix were removed under camera vision. The left lower quadrant port was removed under camera vision and finally, the supraumbilical camera and port were removed. Wounds were inspected for hemostasis and no bleeding was noted. The suprapubic and supraumbilical incisions were closed in 2 layers approximating the subcutaneous tissue with 3-0 Vicryl and the skin with subcuticular 4-0 Monocryl. The left lower quadrant incision was closed with interrupted 4-0 Monocryl in a subcuticular position. All incisions were Steri- Stripped and dressed with sterile Tegaderm pads. Lopez catheter was removed prior to emergence from anesthesia. Following emergence from anesthesia and extubation, the patient was taken to recovery room in stable condition. CECILAI MITCHELL /[id number]
[2020-05-02] MEDS: cefOXitin 1 GM in Premix Bag 1 BAG IV SCH ×2 (05:05→11:27)
--- NOTE | 2020-05-02 07:36 | PCM48HPAN ---
Post Anesthesia Note - EVALUATION WITHIN 48HRS OF ANESTHETIC Vital Signs in Normal Range: Yes Patient Participated in Evaluation: Yes Respiratory Function Stable: Yes Airway Patent: Yes Cardiovascular Function Stable: Yes Hydration Status Stable: Yes Pain Control Satisfactory: Yes Nausea and Vomiting Control Satisfactory: Yes Mental Status Recovered: Yes Vital Signs: Last Vital Signs Temp 37.1 C 05/02/20 05:00 Pulse 73 05/02/20 05:00 Resp 17 05/02/20 05:00 BP 109/59 L 05/02/20 05:00 Pulse Ox 93 L 05/02/20 05:00
--- NOTE | 2020-05-02 14:49 | PCM.DCSUM1 ---
Discharge Summary - Hospital Course Free Text/Narrative:: Patient is a 29-year-old female who presented to the emergency room on May 01, complaining of abdominal pain, nausea and vomiting. Evaluation revealed an acute appendicitis. She was taken to the operating room that evening where she underwent an uneventful laparoscopic appendectomy. - Discharge Data Discharge Date: 05/02/20 Discharge Disposition: Home, Self-Care 01 Condition: Stable - Referral to Home Health Primary Care Physician: PCP None - Discharge Diagnosis/Problem(s) (1) Right lower quadrant pain SNOMED Code(s): 004025162 ICD Code: R10.31 - RIGHT LOWER QUADRANT PAIN Status: Acute Priority: High (2) Nausea and vomiting SNOMED Code(s): 96244547 ICD Code: R11.2 - NAUSEA WITH VOMITING, UNSPECIFIED Status: Acute Priority: Medium Qualifiers: Vomiting Intractability: non-intractable (3) Acute appendicitis SNOMED Code(s): 92872664 ICD Code: K35.80 - UNSPECIFIED ACUTE APPENDICITIS Status: Acute Priority: High Qualifiers: Acute appendicitis type: unspecified acute appendicitis type Qualified Code(s): K35.80 - Unspecified acute appendicitis - Patient Summary/Data Operative Procedure(s) Performed: Laparoscopic appendectomy Consults: Consultations 05/01/20 18:19 Consult to Physician [CONS] Stat - Patient Instructions Diet: Usual Diet as Tolerated Activity: No Lifting Over 25 Pounds, Rest and Relax Today Driving: Do Not Drive Showering/Bathing: May Shower Wound/Incision Care: Keep Operative Site/Wound Site Clean and Dry Notify Provider of: Fever, Increased Pain, Nausea and/or Vomiting Other/Special Instructions: See Dr. Benedict in 7-10 days as scheduled. - Discharge Plan Prescriptions/Med Rec: Acetaminophen/HYDROcodone [[place] 325-5 MG] 1 tab PO Q12H PRN 5 Days #10 tablet PRN Reason: Pain (Moderate 4-6) Home Medications: Home Meds Acetaminophen/HYDROcodone [[place] 325-5 MG] 1 tab PO Q12H PRN 5 Days #10 tablet 05/02/20 [Rx] Patient Handouts: Laparoscopic Appendectomy, Adult, Care After, [id number] Forms: ED Department Discharge Referrals: Rafael Benedict MD [Physician] - 05/12/20 11:00 am PCP,None [Primary Care Provider] - - Discharge Summary/Plan Comment DC Time >30 min.: No - General Info Date of Service: 05/02/20 Admission Dx/Problem (Free Text: Right lower quadrant pain with nausea, vomiting and anorexia. Functional Status: Reports: Pain Controlled, Tolerating Diet, Ambulating, Urinating, Incentive Spirometry - Review of Systems General: Denies: Fever, Weakness HEENT: Reports: No Symptoms Pulmonary: Reports: No Symptoms Cardiovascular: Denies: Chest Pain, Palpitations Gastrointestinal: Reports: Abdominal Pain (Incisional only). Denies: Decreased Appetite, Diarrhea, Nausea, Vomiting Genitourinary: Denies: Dysuria, Frequency, Burning, Pain Musculoskeletal: Denies: Shoulder Pain Skin: Denies: Jaundice, Mottled Neurological: Reports: No Symptoms Psychiatric: Reports: No Symptoms - Patient Data Vitals - Most Recent: Last Vital Signs Temp 99.0 F 05/02/20 08:40 Pulse 86 05/02/20 08:40 Resp 16 05/02/20 08:40 BP 116/62 05/02/20 08:40 Pulse Ox 95 05/02/20 08:40 Weight - Most Recent: 191 lb 12.835 oz I&O - Last 24 hours: Intake & Output 05/02/20 05/02/20 05/02/20 03:59 11:59 19:59 Intake Total 2700 700 Output Total 250 700 Balance 2450 0 Lab Results - Last 24 hrs: Laboratory Results - last 24 hr 05/01/20 05/01/20 05/01/20 Range/Units 16:25 16:25 16:25 WBC 22.32 H (4.0-11.0) K/uL RBC 4.63 (4.30-5.90) M/uL Hgb 14.4 (12.0-16.0) g/dL Hct 42.8 (36.0-46.0) % MCV 92.4 (80.0-98.0) fL MCH 31.1 (27.0-32.0) pg MCHC 33.6 (31.0-37.0) g/dL RDW Std Deviation 41.9 (28.0-62.0) fl RDW Coeff of Shelia 12 (11.0-15.0) % Plt Count 255 (150-400) K/uL MPV 10.60 (7.40-12.00) fL Neut % (Auto) 84.6 H (48.0-80.0) % Lymph % (Auto) 8.4 L (16.0-40.0) % [place] % (Auto) 6.4 (0.0-15.0) % Eos % (Auto) 0.5 (0.0-7.0) % Baso % (Auto) 0.1 (0.0-1.5) % Neut # (Auto) 18.9 H (1.4-5.7) K/uL Lymph # (Auto) 1.9 (0.6-2.4) K/uL [place] # (Auto) 1.4 H (0.0-0.8) K/uL Eos # (Auto) 0.1 (0.0-0.7) K/uL Baso # (Auto) 0.0 (0.0-0.1) K/uL Nucleated RBC % 0.0 /100WBC Nucleated RBCs # 0 K/uL Lactate (0.20-2.00) mmol/L Sodium 140 (136-145) mmol/L Potassium 3.5 (3.5-5.1) mmol/L Chloride 105 (98-107) mmol/L Carbon Dioxide 26.2 (21.0-32.0) mmol/L BUN 7 (7.0-18.0) mg/dL Creatinine 0.8 (0.6-1.0) mg/dL Est Cr Clr Drug Dosing 98.88 mL/min Estimated GFR (MDRD) > 60.0 ml/min Glucose 88 (74-106) mg/dL Calcium 9.5 (8.5-10.1) mg/dL Total Bilirubin 0.2 (0.2-1.0) mg/dL AST 11 L (15-37) IU/L ALT 19 (14-63) IU/L Alkaline Phosphatase 90 (46-116) U/L Total Protein 7.3 (6.4-8.2) g/dL Albumin 3.9 (3.4-5.0) g/dL Globulin 3.4 (2.6-4.0) g/dL Albumin/Globulin Ratio 1.1 (0.9-1.6) Lipase 177 (73-393) U/L HCG, Qual NEGATIVE (NEG) Urine Color Urine Appearance Urine pH (5.0-8.0) Ur Specific [place] (1.001-1.035) Urine Protein (NEGATIVE) mg/dL Urine Glucose (UA) (NEGATIVE) mg/dL Urine Ketones (NEGATIVE) mg/dL Urine Occult Blood (NEGATIVE) Urine Nitrite (NEGATIVE) Urine Bilirubin (NEGATIVE) Urine Urobilinogen (<2.0) EU/dL Ur Leukocyte Esterase (NEGATIVE) Urine RBC (0-2/HPF) Urine WBC (0-5/HPF) Ur Epithelial Cells (NONE-FEW) Urine Bacteria (NEGATIVE) SARS-CoV-2 RNA (LAVON) (NEGATIVE) 05/01/20 05/01/20 05/01/20 Range/Units 16:25 18:00 19:47 WBC (4.0-11.0) K/uL RBC (4.30-5.90) M/uL Hgb (12.0-16.0) g/dL Hct (36.0-46.0) % MCV (80.0-98.0) fL MCH (27.0-32.0) pg MCHC (31.0-37.0) g/dL RDW Std Deviation (28.0-62.0) fl RDW Coeff of [place] (11.0-15.0) % Plt Count (150-400) K/uL MPV (7.40-12.00) fL Neut % (Auto) (48.0-80.0) % Lymph % (Auto) (16.0-40.0) % [place] % (Auto) (0.0-15.0) % Eos % (Auto) (0.0-7.0) % Baso % (Auto) (0.0-1.5) % Neut # (Auto) (1.4-5.7) K/uL Lymph # (Auto) (0.6-2.4) K/uL [place] # (Auto) (0.0-0.8) K/uL Eos # (Auto) (0.0-0.7) K/uL Baso # (Auto) (0.0-0.1) K/uL Nucleated RBC % /100WBC Nucleated RBCs # K/uL Lactate 1.6 (0.20-2.00) mmol/L Sodium (136-145) mmol/L Potassium (3.5-5.1) mmol/L Chloride (98-107) mmol/L Carbon Dioxide (21.0-32.0) mmol/L BUN (7.0-18.0) mg/dL Creatinine (0.6-1.0) mg/dL Est Cr Clr Drug Dosing mL/min Estimated GFR (MDRD) ml/min Glucose (74-106) mg/dL Calcium (8.5-10.1) mg/dL Total Bilirubin (0.2-1.0) mg/dL AST (15-37) IU/L ALT (14-63) IU/L Alkaline Phosphatase (46-116) U/L Total Protein (6.4-8.2) g/dL Albumin (3.4-5.0) g/dL Globulin (2.6-4.0) g/dL Albumin/Globulin Ratio (0.9-1.6) Lipase (73-393) U/L HCG, Qual (NEG) Urine Color YELLOW Urine Appearance SLT CLOUDY Urine pH 7.5 (5.0-8.0) Ur Specific [place] 1.010 (1.001-1.035) Urine Protein NEGATIVE (NEGATIVE) mg/dL Urine Glucose (UA) NEGATIVE (NEGATIVE) mg/dL Urine Ketones NEGATIVE (NEGATIVE) mg/dL Urine Occult Blood LARGE H (NEGATIVE) Urine Nitrite NEGATIVE (NEGATIVE) Urine Bilirubin NEGATIVE (NEGATIVE) Urine Urobilinogen 0.2 (<2.0) EU/dL Ur Leukocyte Esterase TRACE H (NEGATIVE) Urine RBC 0-2 (0-2/HPF) Urine WBC 1-3 (0-5/HPF) Ur Epithelial Cells MODERATE (NONE-FEW) Urine Bacteria FEW (NEGATIVE) SARS-CoV-2 RNA (LAVON) NEGATIVE (NEGATIVE) Med Orders - Current: Current Medications Discontinued Medications Hydrocodone Bitart/Acetaminophen ([place] 325-5 Mg) 1 tab PO Q6H PRN PRN Reason: Pain (moderate 4-6) Last Admin: 05/02/20 05:06 Dose: 1 tab Documented by: Bupivacaine HCl (Marcaine 0.5%) Confirm Administered Dose 30 ml .ROUTE .STK-MED ONE Stop: 05/01/20 19:54 Cefazolin Sodium (Ancef) Confirm Administered Dose 1 gm .ROUTE .STK-MED ONE Stop: 05/01/20 19:54 Dexamethasone (Dexamethasone) Confirm Administered Dose 20 mg .ROUTE .STK-MED ONE Stop: 05/01/20 19:50 Fentanyl (Sublimaze) Confirm Administered Dose 100 mcg .ROUTE .STK-MED ONE Stop: 05/01/20 19:49 Glycopyrrolate (Robinul) Confirm Administered Dose 0.2 mg .ROUTE .STK-MED ONE Stop: 05/01/20 19:50 Sodium Chloride (Normal Saline) 1,000 mls @ 999 mls/hr IV STAT ONE Stop: 05/01/20 17:38 Last Admin: 05/01/20 16:48 Dose: 999 mls/hr Documented by: Ampicillin Sodium/Sulbactam (Sodium 3 gm/ Sodium Chloride) 100 mls @ 200 mls/hr IV ONETIME ONE Stop: 05/01/20 18:49 Last Admin: 05/01/20 19:57 Dose: 200 mls/hr Documented by: Lactated Ringer's (Ringers, Lactated) 1,000 mls @ 125 mls/hr IV ASDIRECTED [facility] Acetaminophen (Ofirmev) Confirm Administered Dose 100 mls @ as directed .ROUTE .STK-MED ONE Stop: 05/01/20 19:58 Lactated Ringer's (Ringers, Lactated) 1,000 mls @ 125 mls/hr IV ASDIRECTED [facility] Last Admin: 05/01/20 23:34 Dose: 125 mls/hr Documented by: Cefoxitin Sodium 1 gm/ Premix 50 mls @ 100 mls/hr IV Q6H [facility] Stop: 05/02/20 11:29 Last Admin: 05/02/20 11:27 Dose: 100 mls/hr Documented by: Iopamidol (Isovue Multipack-370 (76%)) 100 ml IVPUSH ONETIME ONE Stop: 05/01/20 17:40 Last Admin: 05/01/20 17:40 Dose: 100 ml Documented by: Ketorolac Tromethamine (Toradol) Confirm Administered Dose 30 mg .ROUTE .STK-MED ONE Stop: 05/01/20 19:50 Midazolam HCl (Versed 1 Mg/Ml) Confirm Administered Dose 2 mg .ROUTE .STK-MED ONE Stop: 05/01/20 19:50 Morphine Sulfate (Morphine) 2 mg IVPUSH ONETIME ONE Stop: 05/01/20 16:39 Last Admin: 05/01/20 16:48 Dose: 2 mg Documented by: Morphine Sulfate (Morphine) Confirm Administered Dose 10 mg .ROUTE .STK-MED ONE Stop: 05/01/20 19:59 Morphine Sulfate (Morphine) 4 mg IVPUSH ONETIME ONE Stop: 05/01/20 20:52 Morphine Sulfate (Morphine) 1 - 5 mg IVPUSH Q1H PRN PRN Reason: Pain (severe 7-10) Last Admin: 05/01/20 22:52 Dose: 5 mg Documented by: Ondansetron HCl (Zofran) 4 mg IVPUSH ONETIME ONE Stop: 05/01/20 16:39 Last Admin: 05/01/20 16:48 Dose: 4 mg Documented by: Propofol (Diprivan 20 Ml) Confirm Administered Dose 600 mg .ROUTE .STK-MED ONE Stop: 05/01/20 19:49 Rocuronium [place] (Rocuronium [place]) Confirm Administered Dose 50 mg .ROUTE .STK-MED ONE Stop: 05/01/20 19:50 Sodium Chloride (Saline Flush) 10 ml FLUSH ASDIRECTED PRN PRN Reason: Keep Vein Open Last Admin: 05/01/20 16:49 Dose: 10 ml Documented by: Sodium Chloride (Saline Flush) 2.5 ml FLUSH ASDIRECTED PRN PRN Reason: Keep Vein Open Last Admin: 05/01/20 16:49 Dose: 2.5 ml Documented by: - Exam Quality Assessment: Denies: Supplemental Oxygen General: Reports: Alert, Oriented, Cooperative, No Acute Distress HEENT: Reports: Pupils Equal, Pupils Reactive. Denies: Scleral Icterus Neck: Reports: Supple Lungs: Reports: Clear to Auscultation Cardiovascular: Reports: Regular Rate, Regular Rhythm GI/Abdominal Exam: Normal Bowel Sounds, Soft, Non-Tender, No Distention. No: Guarding, Rigid, Rebound (Female) Exam: Deferred Rectal (Female) Exam: Deferred Back Exam: Reports: Normal Inspection Skin: Reports: Warm, Dry, Intact Wound/Incisions: Reports: Healing Well, Dressing Dry and Intact Psy/Mental Status: Reports: Alert, Normal Affect, Normal Mood
== END 2020-05-02 12:24 | disposition home or self-care (01) ==
LOC: MW.ED 15:18 → MW.SDS 19:43 → MW.MS 20:18 → MW.OB 20:42 → MW.SDS 05-02 12:24
PROVIDERS: ATTEND Surgery
DX: K35.80 Unspecified acute appendicitis (principal); F17.210 Nicotine dependence, cigarettes, uncomplicated; Z01.812 Encounter for preprocedural laboratory examination; Z20.828 Contact with and (suspected) exposure to other viral communicable diseases
CPT/HCPCS: 36415; 44970; 74177; 80053; 81001; 83605; 83690; 84703; 85025; 87040; 87086; 87635; 88304; 96361; 96365; 96375; 99285; A9270; J0131; J0295; J0330; J0690; J0694; J1100; J1885; J2250; J2270; J2405; J2704; J3010; J3490; J7030; J7120; Q9967; 00840; 99284; U0002

== ENCOUNTER 2020-07-26 16:28 | Emergency (ER) | payer OTHER ==
--- NOTE | 2020-07-26 16:43 | EDM.PDOC ---
ED HPI GENERAL MEDICAL PROBLEM - General Chief Complaint: Lower Extremity Injury/Pain Stated Complaint: LEFT FOOT INJURY Time Seen by Provider: 07/26/20 16:42 Source of Information: Reports: Patient History Limitations: Reports: No Limitations - History of Present Illness INITIAL COMMENTS - FREE TEXT/NARRATIVE: 29-year-old female presents with left foot pain. Patient was coming down the stairs yesterday and missed 1 step and inverted her left foot. Pain is localized to the left foot, moderate, sharp, nonradiating, constant, exacerbated with weightbearing, alleviated with immobilization. ROS: A 10-point review of systems, other than pertinent positives and negatives as stated per HPI, is otherwise negative Past medical history: No additional pertinent history Past Surgical history: No additional pertinent history Social history: No additional pertinent history Family history: No additional pertinent history PHYSICAL EXAM General: AOx4, GCS = 15, moderate distress HEENT: dry mucous membrane Neck: supple, no meningismus, no Kernig or Brudzinski Cardiac: S1S2 tachycardia Respiratory: CTAB, no crackles or rales, no wheezing Abdomen: Soft, nontender, no rebound or guarding, nondistended, no pulsatile mass. Back: nontender Musculoskeletal: NVI distally, swelling to left midfoot, tenderness to navicular bone and fifth MT, no tenderness to bilateral malleolus or proximal fibula. Neuro: No focal deficits, CN 2 - 12 WNL. Left Foot Pain Score (Numeric/FACES): 2 - Related Data Allergies Allergy/AdvReac Type Severity Reaction Status Date / Time No Known Allergies Allergy Verified 07/26/20 16:38 Home Meds: Home Meds Naproxen [Naprosyn] 500 mg PO Q12HR #30 tab 07/26/20 [Rx] Past Medical History - Infectious Disease History Infectious Disease History: Reports: Chicken Pox Other Infectious Disease History: Chicken pox as a child Social & Family History - Caffeine Use Caffeine Use: Reports: Coffee Review of Systems - Review of Systems Review Of Systems: See Below (see dictation) ED EXAM, GENERAL - Physical Exam Exam: See Below (see dictation) ED TRAUMA EXTREMITY PROCEDURES - Splinting Left Lower Extremity Splint Site: Left foot Pre-Procedure NV Status: Normal Post-Procedure NV Status: Normal Splint Material: Other (Postop shoe) Applied & Form Fitted By: Nurse Provider Post-Splint Application NV Check: NV Status Normal, Good Position Complications: No Progress/Comments: Splint: Postop shoe Indication: Left foot sprain How will this benefit patient: immobilization Duration: 7days Course - Vital Signs Last Recorded V/S: Last Vital Signs Temp 97 F 07/26/20 16:38 Pulse 114 H 07/26/20 16:38 Resp 18 07/26/20 16:38 BP 143/87 H 07/26/20 16:38 Pulse Ox 97 07/26/20 16:38 - Orders/Labs/Meds Orders: Active Orders 24 hr Category Date Time Status DME for Discharge [COMM] Stat Oth 07/26/20 17:17 Ordered - Re-Assessments/Exams Free Text/Narrative Re-Assessment/Exam: 07/26/20 17:40 After splint and crutches in the ER, the patient improved and is currently stable for discharge. I performed a repeat exam and did not appreciate new abnormal findings. Patient exhibits normal vital signs and has a normal gait with crutches. I advised the patient to return to the ER for reevaluation if symptoms worsened, including fever, worsening pain, or any other worrisome symptoms. I instructed the patient to follow up with podiatry within 3-5 days. MEDICAL DECISION MAKING: I reviewed the patients past medical records, lab and radiographic findings. I discussed the case with the patient. My differential diagnosis included: Foot fracture, strain, dislocation. X-ray did not demonstrate any fractures. The affected extremity demonstrated good distal perfusion, warm, pink, cap refill <2 seconds, compartments soft, pulses equal in both extremities. Patient understands to return immediately for worsening pain, swelling, fever, numbness/tingling or other concerns and to f/u with podiatry if no improvement of symptoms within 3-5 days. Departure - Departure Time of Disposition: 17:40 Disposition: Home, Self-Care 01 Condition: Good Clinical Impression: Strain of foot, left - Discharge Information *PRESCRIPTION DRUG MONITORING PROGRAM REVIEWED*: Not Applicable *COPY OF PRESCRIPTION DRUG MONITORING REPORT IN PATIENT [place]: Not Applicable Prescriptions: Naproxen [Naprosyn] 500 mg PO Q12HR #30 tab Instructions: Crutch Use, Adult, [id number], Foot Sprain, Cast or Splint Care, Adult, [id number] Referrals: Hema Vicente DPM [Physician] - 3 Days Forms: ED Department Discharge Additional Instructions: The need for follow-up, as well as the timing and circumstances, are variable depending upon the specifics of your emergency department visit. If you don't have a primary care physician on staff, we will provide you with a referral. We always advise you to contact your personal physician following an emergency department visit to inform them of the circumstance of the visit and for follow-up with them and/or the need for any referrals to a consulting specialist. The emergency department will also refer you to a specialist when appropriate. This referral assures that you have the opportunity for follow-up care with a specialist. All of these measure are taken in an effort to provide you with opti mal care, which includes your follow-up. Under all circumstances we always encourage you to contact your private physician who remains a resource for coordinating your care. When calling for follow-up care, please make the office aware that this follow-up is from your recent emergency room visit. If for any reason you are refused follow-up, please contact the [facility] Emergency Department at and asked to speak to the emergency department charge nurse. If you do not have a primary care doctor, please follow up with the clinics below within 3-5 days. [facility] [address] [place] [id number] [facility] [address] [place] [id number] Sepsis Event Note (ED) - Evaluation Sepsis Screening Result: No Definite Risk - Focused Exam Vital Signs: Vital Signs Temp Pulse Resp BP Pulse Ox 07/26/20 16:38 97 F 114 H 18 143/87 H 97 - My Orders Last 24 Hours: My Active Orders 07/26/20 17:17 DME for Discharge [COMM] Stat - Assessment/Plan Last 24 Hours: My Active Orders 07/26/20 17:17 DME for Discharge [COMM] Stat
--- NOTE | 2020-07-26 17:35 | CR ---
Indication: Pain after twisting foot Technique: Three views left foot Comparison: None Findings: Bones: Alignment is normal. No fractures or bone lesions. Joint spaces: Unremarkable. Soft tissues: Unremarkable. Impression: Negative. Dictated by Rachelle Savage MD @ Jul 26 2020 5:33PM Signed by Dr. Rachelle Savage @ Jul 26 2020 5:33PM
== END 2020-07-26 17:56 | disposition home or self-care (01) ==
LOC: MW.ED 16:28
DX: S96.912A Strain of unspecified muscle and tendon at ankle and foot level, left foot, initial encounter (principal); X50.9XXA Other and unspecified overexertion or strenuous movements or postures, initial encounter
CPT/HCPCS: 73630-26-LT; 73630-LT; 99283

== ENCOUNTER 2022-06-24 05:43 | Emergency (ER) | payer MEDICAID ==
[2022-06-24] MEDS ORDERED: Ibuprofen 600 MG Tab PO ONE (06:50)
[2022-06-24] MEDS ORDERED: traMADol 50 MG Tab PO ONE (06:50)
== END 2022-06-24 07:36 | disposition home or self-care (01) ==
LOC: MW.ED 05:43
DX: S83.92XA Sprain of unspecified site of left knee, initial encounter (principal); M23.92 Unspecified internal derangement of left knee; F17.210 Nicotine dependence, cigarettes, uncomplicated; Y04.0XXA Assault by unarmed brawl or fight, initial encounter
CPT/HCPCS: 73562-26-LT; 73562-LT; 99283

== ENCOUNTER 2024-12-08 12:12 | Emergency (ER) | payer MEDICAID ==
[2024-12-08] MEDS: Lidocaine 2% Viscous Solution 15 ML UD PO ONE (13:38)
[2024-12-08] MEDS: Benzocaine 20% Topical Spray UD MUCMEM ONE (13:38)
== END 2024-12-08 13:43 | disposition home or self-care (01) ==
LOC: MW.ED 12:12
DX: K00.7 Teething syndrome (principal); Z75.8 Other problems related to medical facilities and other health care; F17.200 Nicotine dependence, unspecified, uncomplicated
CPT/HCPCS: 99282; A9270; 99283

== ENCOUNTER 2025-01-29 17:43 | Emergency (ER) | payer MEDICAID ==
[2025-01-29] MEDS: Ketorolac 30 MG/ML SDV IVPUSH ONE (18:39)
[2025-01-29] MEDS: Benzocaine 20% Topical Spray UD MUCMEM ONE (18:39)
[2025-01-29] MEDS: Lidocaine 2% Viscous Solution 15 ML UD PO ONE (18:39)
== END 2025-01-29 18:48 | disposition home or self-care (01) ==
LOC: MW.ED 17:43
DX: K04.7 Periapical abscess without sinus (principal); K02.9 Dental caries, unspecified; Z79.899 Other long term (current) drug therapy
CPT/HCPCS: 96374; 99282; A9270; J1885; J3490; 99283

== ENCOUNTER 2025-05-12 08:57 | Emergency (ER) | payer SELFPAY | END 2025-05-12 10:26 | disposition home or self-care (01) | LOC: MW.ED 08:57 | DX: M75.22 Bicipital tendinitis, left shoulder (principal); F17.200 Nicotine dependence, unspecified, uncomplicated; Z79.899 Other long term (current) drug therapy; Z75.3 Unavailability and inaccessibility of health-care facilities | CPT/HCPCS: 73060; 99283; A9270; J8540; 99284 ==